=== PATIENT | female | born 1935 | race Caucasian/White ===

== ENCOUNTER 2018-08-10 09:16 | Day surgery (SDC) | payer OTHER ==
[2018-08-10] MEDS: BUPIVACAINE 0.25% PF 10 ML VIAL ONE ×2 (10:22→11:47)
[2018-08-10] MEDS: TETRACAINE HCL 0.5% 2ML OPTH ONE ×3 (10:22→12:20)
[2018-08-10] MEDS: LIDOCAINE 2% MPF 5 ML VIAL ONE ×2 (10:23→11:47)
[2018-08-10] MEDS ORDERED: NA CHLORIDE 0.9% 500 ML ONE (10:31)
[2018-08-10] MEDS: PHENYLEPHRINE 10% OPTH 5ML ONE ×3 (10:38→10:48)
[2018-08-10] MEDS: CYCLOPENTOLATE 1% OPTH 2 ML ONE ×3 (10:38→10:48)
[2018-08-10 10:44] VITALS: TEMP 97.5
[2018-08-10] MEDS ORDERED: PROPOFOL 200 MG/20 ML VIAL IV ONE (10:52)
[2018-08-10] MEDS ORDERED: LIDOCAINE 2% MPF 5 ML VIAL ONE (10:52)
[2018-08-10] MEDS ORDERED: EPINEPHRINE/PF 1 MG/ML AMP ONE (10:58)
[2018-08-10] MEDS ORDERED: NS 0.9% VIAL 10 ML ONE (10:58)
[2018-08-10] MEDS ORDERED: BALANCED SALT IRRIG PLAIN 500 ML BTL IRR ONE (10:58)
[2018-08-10] MEDS ORDERED: DUOVISC 1 KIT OPTH ONE (10:59)
[2018-08-10] MEDS ORDERED: TRYPAN BLUE 0.5 ML SYR OPTH ONE (11:00)
[2018-08-10] MEDS ORDERED: MOXIFLOXACIN HCL 10 DROPS/ML **OR USE OPTH ONE (11:00)
--- NOTE | 2018-08-10 12:33 | P.BOP ---
Preoperative diagnosis: Nuclear sclerotic and cortical cataract OS Postoperative diagnosis: Same Primary procedure: Phacoemulsification with IOL OS Estimated blood loss: None Anesthesia: Local (Subtenon's infusion with anesthesia for cataract surgery) Complications: None Implants: SN60WF +20.0 Transferred to: Other (Day surgery) Condition: Good
[2018-08-10 13:01] VITALS: BP 144/81; O2SAT 100
--- NOTE | 2018-08-11 00:03 | OP ---
Date of Procedure: 08/10/2018 Surgeon: Ellen Maldonado MD Anesthesiologist: Yelena Rodriguez CRNA and Dionicio Alcantar MD. Preoperative Diagnoses: Nuclear sclerotic and cortical cataract, left eye. Operation Performed: Phacoemulsification with intraocular lens implant, left eye. Anesthesia: Per cataract surgery. Complications: None. Description Of Procedure: In day surgery, the patient was prepped with Betadine and draped. A conju nctival incision was made in the inferior nasal quadrant with Harsh scissors. A sub-Tenon block c onsisting of a 1:1 mixture of 2% Xylocaine and 0.25% bupivacaine was placed through the conjunctival incision with a blunt cannula. A [place] balloon was placed over the eye and the patient was transferr ed to the operating room. In the operating room the patient was prepped and draped in the usual sterile fashion for ophthalmic surgery. A lid speculum was placed in the left eye. Two paracentesis sites were made superiorly and inferiorly in the limbal cornea. Viscoat was placed in the anterior chamber and a crescent blade wa s used to make a corneal groove and tunnel, and a keratome was used to enter the anterior chamber. P rovisc was placed in the anterior chamber and a 360 degree capsulotomy was performed with a cystitome . The lens was hydrodissected with BSS and rotated freely. The lens was removed with a stop and cho p technique. 5.78 phaco CDE was used to remove the lens. Residual cortex was removed with the irrig ation and aspiration. Provisc was placed in the capsular bag. A SN60WF +20.0 lens was placed in the capsular bag without complications. Irrigation and aspiration were used to remove residual viscoela stic. The paracentesis sites were hydrated with BSS. The wound and paracentesis sites were inspecte d and found to be watertight. Vigamox 0.07 cc was placed intracamerally at the end of the procedure. The eye was irrigated with balanced salt solution. The eye was patched with a soft cotton patch an d Rodriges metal shield. The patient was returned to day surgery in good condition. Comments: Discharge Instructions: Ms. Fajardo is discharged to home in good condition and is to follow up with Dr. Maldonado in the morning. CAITIE/BRIAN Voice ID: [id number] Report ID: [id number]
== END 2018-08-10 13:01 | disposition home or self-care (01) ==
LOC: OR 09:16
PROVIDERS: ATTEND Ophthalmology Retina Specialist
PROC: 08RK3JZ Replacement of Left Lens with Synthetic Substitute, Percutaneous Approach (ICD-10-PCS; principal; 2018-08-10 11:15)
DX: H25.12 Age-related nuclear cataract, left eye (principal); H25.012 Cortical age-related cataract, left eye; H04.123 Dry eye syndrome of bilateral lacrimal glands; Z85.3 Personal history of malignant neoplasm of breast; Z90.10 Acquired absence of unspecified breast and nipple; Z85.6 Personal history of leukemia; E07.9 Disorder of thyroid, unspecified; K21.9 Gastro-esophageal reflux disease without esophagitis; Z82.49 Family history of ischemic heart disease and other diseases of the circulatory system; Z83.511 Family history of glaucoma
CPT/HCPCS: 66984; J2704; J0171